=== PATIENT | male | born 1960 | race Caucasian/White ===

== ENCOUNTER → 2017-05-14 | Outpatient (CLI) | payer MEDICARE, MEDICAID ==
[~2017-05-14] MED LIST: ASPIRIN 81MG TA81 MG PO; CLOPIDOGREL75 MG PO; GABAPENTIN 600600 MG PO; HYDROCODONE/ACE1 TA5 PO; HYDROXYZINE 25M25 MG PO; INSULIN GL100 UNITS/ SC; LIPITOR80 MG PO; LISINOPRIL 20MG20 MG PO; MECLIZINE HYDRO25 MG PO; METFORMIN 500M500 MG PO; NORCO 325 MG-101 TAB PO; OMEPRAZOLE40 MG PO; ONDANSETRON8 M1 PO; TAMSULOSIN HYD0.4 MG PO
--- NOTE | 2017-05-16 11:02 | RADIOLOGY REPORT PS360 ---
MRI-UP EXT ANY JNT W/O-RT MRI of right shoulder Ordering Physician: Juan Manuel Vee MD Patient Age: 56 years: Male HISTORY: ROTATOR CUFF SYNDROME OF RT SHOULDERright shoulder pain raising arm above head. Pain arm behind back. Limited range of motion. Pain radiates to elbow. No trauma. Symptoms 5 months. Facet leading to a TECHNIQUE: Multiplanar multisequence imaging 1.5T MRI. FINDINGS : Supraspinatus tendon. No full-thickness tear, but there is slight increased signal at undersurface of the supraspinatus tendon. This is most evident at its anterior aspect towards critical zone.. Appearance Likely reflecting tendinopathy. Cannot exclude very minor minor undersurface tear or irregularity.. No full-thickness tear nor tendon retraction. No significant fluid at subdeltoid subacromial bursa Infraspinatus tendon- appears intact. Unremarkable. Nicely visualized Teres minor component of rotator cuff unremarkable as well Subscapularis tendon anteriorly is intact. Suspect subtle edema towards anterior interval region suggested. Slight increased signal interstitial tissues here... Nonspecific . Scant increased joint fluid right shoulder most evident anteriorly.. No prominent joint effusion. The anterior and posterior labrum appear intact. Glenoid and osseous glenoid intact. Biceps tendon itself well visualized appears intact. Minimal Fluid along the course of biceps tendon. May reflect slight increased joint fluid, could reflect a biceps tendinopathy AC joint with only mild degenerative changes. I would note minimal roughening and minor focal spurring from inferior margin distal clavicle which does impinge upon the supraspinatus at medial outlet and could contribute to impingement syndrome. This is seen on sagittal image 13 and coronal image 11. Otherwise the subacromial space seems to be well maintained and actually a fairly short acromion which only extends to the 12:00 midportion of humeral head. It acromion does not extend laterally . Also on additional review there is subtle increased signal throughout distal head of clavicle. A Nonspecific finding but can be associated with shoulder pain predicted AC joint. Also Upper normal fluid AC joint itself . No plain films for correlation -------.IMPRESSION: 1. No full-thickness rotator cuff tear. No tendon retraction. Modest findings at the rotator cuff and elsewhere 2. Supraspinatus tendon with tendinopathy.. Slight increased signal along the inferior surface near its anterior insertion. Likely Reflect tendinopathy with possibly minor undersurface partial tear. Warrants ongoing conservative therapy. 3. Scant increased fluid, most evident towards anterior shoulder joint. .. Minimal Increase fluid along the biceps tendon sheath likely related to this, and or could reflect mild biceps tendinitis 4.. Mild degenerative changes AC joint region. - Minimal inferior spurring at distal end of clavicle which does impinge upon supraspinatus complex as it passes beneath this area at medial outlet,. - Although Could be contributor to impingement symptoms it is unimpressive. -Subtle increased fluid AC joint and slight increased signal distal clavicle. warrants correlation and may be relevant if AC joint pain .
== END ==
LOC: RAD 09:02
DX: M75.101 Unspecified rotator cuff tear or rupture of right shoulder, not specified as traumatic (principal)